=== PATIENT | female | born 1980 | race Caucasian/White ===

== ENCOUNTER 2020-02-10 05:07 | Emergency (ER) | payer BC, OTHER ==
[~2020-02-10] VITALS: Ht 165.1 cm; Wt 80.7 kg
[2020-02-10] MEDS ORDERED: ONDANSETRON HCL INJ 2MG/ML 2ML 2 MG/ML VIAL IV STA (05:15)
[2020-02-10] MEDS ORDERED: SODIUM CHLORIDE 0.9% 1000ML 1,000 ML IV STA (05:15)
[2020-02-10] MEDS ORDERED: ONDANSETRON HCL INJ 2MG/ML 2ML 2 MG/ML VIAL ONE (05:26)
[2020-02-10 05:37] LABS: BASOPHILS % 0.5 % (0.0-1.0); EOSINOPHILS # (AUTO) 0.2 (0.0-0.4); HEMATOCRIT 40.6 % (34.2-44.1); HEMOGLOBIN 13.6 g/dL (12.0-16.0); LYMPHOCYTES # (AUTO) 3.8 (1.0-3.2); MEAN CORPUSCULAR HEMOGLOBIN 33.2 pg (28-32); MEAN CORPUSCULAR HGB CONC 33.5 g/dL (31-35); MONOCYTES # (AUTO) 0.5 (0.2-0.8); MONOCYTES % 6.4 % (4.4-11.3); NEUTROPHILS # (AUTO) 3.8 (2.1-6.9); NEUTROPHILS % 45.7 % (38.7-80.0); PLATELET COUNT 224 x10e3/uL (140-360); RED CELL DISTRIBUTION WIDTH 12.9 % (11.7-14.4)
[2020-02-10 06:00] LABS: ALBUMIN 3.9 g/dL (3.5-5.0); ALBUMIN/GLOBULIN RATIO 1.1 (0.8-2.0); ANION GAP 8.4 mmol/L (8-16); CALCIUM 9.6 mg/dL (8.4-10.2); CREATININE, SERUM 1.07 mg/dL (0.57-1.11); POTASSIUM 3.4 mmol/L (3.5-5.1)
[2020-02-10 06:36] LABS: BILIRUBIN,URINE NEGATIVE (NEGATIVE); CLARITY,URINE SL CLOUDY (CLEAR); COLOR,URINE YELLOW (YELLOW); KETONES,URINE NEGATIVE (NEGATIVE); LEUKOCYTE ESTERASE ,URINE TRACE (NEGATIVE); NITRITE,URINE NEGATIVE (NEGATIVE); PROTEIN,URINE DIPSTICK NEGATIVE (NEGATIVE); URINE UROBILINOGEN 0.2 mg/dL (0.2 - 1)
[2020-02-10 06:45] LABS: PREGNANCY TEST, URINE NEGATIVE (NEGATIVE)
[2020-02-10 06:48] LABS: EPITHELIAL CELLS,URINE MANY /LPF; RBC,URINE 0-5 /HPF (0-5)
[2020-02-10 06:49] LABS: BACTERIA,URINE MANY /HPF
[2020-02-10] MEDS ORDERED: IOPAMIDOL 370 MG/ML 200 ML INFUS..BTL INJ ONE (06:55)
[2020-02-10] MEDS ORDERED: SODIUM CHLORIDE 0.9% 50ML 50 ML ONE (06:56)
--- NOTE | 2020-02-10 07:39 | Diagnostic Imaging Report ---
CT Abdomen And Pelvis with Intravenous Contrast INDICATION: Upper abdominal pain, radiating to back with nausea and vomiting ^abd pain ^[id number] ^0700 TECHNIQUE: Thin collimation axial images obtained from the diaphragm to the level of the pubic symphysis following the uneventful administration of 100 cc of low osmolar, nonionic intravenous contrast. Dose reduction techniques used: Automated exposure control, adjustment of the mAs and/or kVp according to patient size, standardized low-dose protocol, and/or iterative reconstruction technique. RADIATION DOSE: Total DLP: 485.6 mGy*cm Estimated effective dose: (DLP x 0.015 x size factor) mSv CTDIvol has been reviewed. It is below the limits set by the Radiation Protocol Committee (RPC). COMPARISON: None. ABDOMEN FINDINGS: Lung Bases: Clear. The visualized portions of the mediastinum are normal.. Liver: Normal attenuation. No evidence for mass. Gallbladder: Present and contains multiple gallstones. No gallbladder wall thickening. No biliary ductal dilatation. Pancreas: Normal attenuation without mass or ductal dilatation. Spleen: Normal in size. No evidence of mass. Adrenal Glands: No evidence for mass. Kidneys: Right: Normal enhancement. No soft tissue mass. No hydronephrosis. Left: Normal enhancement. No soft tissue mass. No hydronephrosis. Lymph Nodes: No lymphadenopathy. Aorta: Normal in diameter PELVIS FINDINGS: Bowel: Stomach: Normal. Small Bowel: Normal in caliber with normal wall thickness. Large Bowel: Normal in caliber with normal wall thickness. Appendix: Normal. Bladder: Normal. Uterus: Present and normal in morphology. There is a corpus luteum and a dominant follicle in the right ovary. A unilocular cystic structure superior to the uterus measures 7.4 x 6.7 x 5.6 cm. Peritoneum/retroperitoneum: Physiologic amount of free fluid in the pelvis. Bones: Unremarkable for age. IMPRESSION: 1. No evidence for bowel obstruction or inflammation. Normal appendix. 2. Corpus luteum in the right ovary with physiologic amount of free fluid in the pelvis suggestive of recent ovulation. 3. Unilocular cystic structure in the midline pelvis may arise from either ovary. Recommend further characterization with pelvic ultrasound. Signed by: Dr. Edward Bateman MD on 02/10/2020 7:36 AM
[2020-02-10] MEDS ORDERED: KETOROLAC TROMETHAMINE 30 MG/ML VIAL IV STA (09:31)
[2020-02-10] MEDS ORDERED: FAMOTIDINE 20 MG/2 ML VIAL IV STA (09:31)
--- NOTE | 2020-02-10 09:43 | Diagnostic Imaging Report ---
EXAM: Right upper quadrant abdominal ultrasound INDICATION: Right upper quadrant pain COMPARISON: CT abdomen and pelvis of the same day TECHNIQUE: Transverse and longitudinal images of the right upper quadrant abdomen were obtained FINDINGS: Liver: Size: 13.7 cm in the right midclavicular line, normal Appearance: Increased echogenicity, smooth contour Mass: No focal masses Gallbladder: Multiple echogenic calculi (up to 1.8cm) in the gallbladder fundus. Additional sludge within the gallbladder. The gallbladder is somewhat distended, measuring up to 3.9 x 11.2 cm. No pericholecystic fluid or gallbladder wall thickening. Negative sonographic Gomez's sign. Gallbladder wall measures 2 mm. Bile Ducts: Intrahepatic Ducts: No dilatation Extrahepatic Ducts: Common bile duct measures 3 mm Pancreas: Visualized portions of the pancreatic head, neck and proximal body are normal. Kidney: The right kidney measures 10.1 cm without evidence of hydronephrosis or stone. Vessels: Aorta: Visualized portions are normal Inferior Vena Cava: Visualized portions are normal Main Portal Vein: 0.7 cm, normal size with hepatopetal flow. Free Fluid: No ascites or pleural effusion IMPRESSION: Cholelithiasis and sludge in the gallbladder. Mild gallbladder distention. No specific sonographic evidence of cholecystitis. Signed by: Kash Hoffman MD on 02/10/2020 9:39 AM
[2020-02-10] MEDS ORDERED: DONNATAL/LIDOCAINE/MAALOX 30 ML SUSP PO ONE (09:45)
[2020-02-10] MEDS ORDERED: ZOFRAN4 MG PO (10:17)
[2020-02-10] MEDS ORDERED: DICYCLOMINE HCL20 MG PO (10:17)
== END 2020-02-10 10:35 | disposition home or self-care (01) ==
LOC: ER 05:07
DX: R10.11 Right upper quadrant pain (principal); R11.2 Nausea with vomiting, unspecified; K80.20 Calculus of gallbladder without cholecystitis without obstruction; F41.9 Anxiety disorder, unspecified; G98.8 Other disorders of nervous system
CPT/HCPCS: 36415; 74177; 76705; 80053; 81001; 81025; 83690; 85025; 93005; 99284; J1885; J2405; J7030; Q9967

== ENCOUNTER 2020-02-11 02:03 | Emergency (ER) | payer OTHER ==
[~2020-02-11] VITALS: Ht 165.1 cm; Wt 80.7 kg
[~2020-02-11 02:03] MED LIST: DICYCLOMINE HCL20 MG PO; ZOFRAN4 MG PO
--- OUTSIDE RECORDS SUMMARY | 2020-02-11 02:06 | XMS REPORT ---
Author [facility] Address Unknown Phone Unavailable Care Team Providers Care Timber Bucker Name Role Phone Avis PAGAN Unavailable Unavailable Problems This patient has no known problems. Allergies, Adverse Reactions, Alerts This patient has no known allergies or adverse reactions. Medications This patient has no known medications. Results Test Description Test Time Test Comments Text Results Atomic Results Result Comments GALLBLADDER 2020-02-10 09:36:00 [place] [address] Patient Name: AVERY MARY MR #: [id number] : 1980 Age/Sex: 39/F Req #: [id number] Adm Physician: Ordered by: CAROL LANGFORD DO Report #: [id number] Location: ER Room/Bed: Procedure: [id number] US/US GALLBLADDER Exam Date: 02/10/20 Exam Time: 0835 REPORT STATUS: Signed EXAM: Right upper quadrant abdominal ultrasound INDICATIO N: Right upper quadrant pain COMPARISON: CT abdomen and pelvis of the same day TECHNIQUE: Transverse and longitudinal images of the right upper quadrant abdomen were obtained FINDINGS: Liver: Size: 13.7 cm in the right midclavicular line, normal Appearance: Increased echogenicity, smooth contour Mass: No focal masses Gallbladder: Multiple echogenic calculi (up to 1.8cm) in the gallbladder fundus. Additional sludge within the gallbladder. The gallbladder is somewhat distended, measuring up to 3.9 x 11.2 cm. No pericholecystic fluid or gallbladder wall thickening. Negative sonographic Gomez's sign. Gallbladder wall measures 2 mm. Bile Ducts: Intrahepatic Ducts: No dilatation Extrahepatic Ducts: Common bile duct measures 3 mm Pancreas: Visualized portions of the pancreatic head, neck and proximal body are normal. Kidney: The right kidney measures 10.1 cm without evidence of hydronephrosis or stone. Vessels: Aorta: Visualized portions are normal Inferior Vena Cava: Visualized portions are normal Main Portal Vein: 0.7 cm, normal size with hepatopetal flow. Free Fluid: No ascites or pleural effusion IMPRESSION: Cholelithiasis and sludge in the gallbladder. Mild gallbladder distention. No specific sonographic evidence of cholecystitis. Signed by: Demarco Adkins MD on 02/10/2020 9:39 AM Dictated By: DEMARCO ADKINS MD 8 Transcribed By: JAGDEEP on 02/10/20938 COPY TO: CAROL LANGFORD DO CT ABDOMEN/PELVIS W 2020-02-10 07:31:00 [place] [address] Patient Name: AVERY MARY MR #: [id number] : 1980 Age/Sex: 39/F Req #: [id number] Adm Physician: Ordered by: GORGE PAGAN MD Report #: [id number] Location: ER Room/Bed: Procedure: [id number] CT/CT ABDOMEN/PELVIS W Exam Date: 02/10/20 Exam Time: 0700 REPORT STATUS: Signed CT Abdomen And Pelvis with Intravenous Contrast IN DICATION: Upper abdominal pain, radiating to back with nausea and vomiting abd pain [id number] TECHNIQUE: Thin collimation axial images obtained from the diaphragm to the level of the pubic symphysis following the uneventful administration of 100 cc of low osmolar, nonionic intravenous contrast. Dose reduction techniques used: Automated exposure control, adjustment of the mAs and/or kVp according to patient size, standardized low- dose protocol, and/or iterative reconstruction technique. RADIATION DOSE: Total DLP: 485.6 mGy*cm Estimated effective dose: (DLP x 0.015 x size factor) mSv CTDIvol has been reviewed. It is below the limits set by the Radiation Protocol Committee (RPC). COMPARISON: None. ABDOMEN FINDINGS: Lung Bases: Clear. The visualized portions of the mediastinum are normal.. Liver: Normal attenuation. No evidence for mass. Gallbladder: Present and contains multiple gallstones. No gallbladder wall thickening. No biliary ductal dilatation. Pancreas: Normal attenuation without mass or ductal dilatation. Spleen: Normal in size. No evidence of mass. Adrenal Glands: No evidence for mass. Kidneys: Right: Normal enhancement. No soft tissue mass. No hydronephrosis. Left: Normal enhancement. No soft tissue mass. No hydronephrosis. Lymph Nodes: No lym phadenopathy. Aorta: Normal in diameter PELVIS FINDINGS: Bowel: Stomach: Normal. Small Bowel: Normal in caliber with normal wall thickness. Large Bowel: Normal in caliber with normal wall thickness. Appendix: Normal. Bladder: Normal. Uterus: Present and normal in morphology. There is a corpus luteum and a dominant follicle in the right ovary. A unilocular cystic structure superior to the uterus measures 7.4 x 6.7 x 5.6 cm. Peritoneum/retroperitoneum: Physiologic amount of free fluid in the pelvis. Bones: Unremarkable for age. IMPRESSION: 1. No evidence for bowel obstruction or inflammation. Normal appendix. 2. Corpus luteum in the right ovary with physiologic amount of free fluid in the pelvis suggestive of recent ovulation. 3. Unilocular cystic structure in the midline pelvis may arise from either ovary. Recommend further characterization with pelvic ultrasound. Signed by: Dr. Mercedes Bateman MD on 02/10/2020 7:36 AM Dictated By: MERCEDES BATEMAN MD 5 Transcribed By: JAGDEEP on 02/10/20735 COPY TO: GORGE PAGAN MD
[2020-02-11] MEDS ORDERED: SODIUM CHLORIDE 0.9% 1000ML 1,000 ML IV STA (02:14)
[2020-02-11] MEDS ORDERED: ONDANSETRON HCL INJ 2MG/ML 2ML 2 MG/ML VIAL IV STA (02:16)
[2020-02-11] MEDS ORDERED: MORPHINE SULFATE INJ 4 MG/ML INJ 1ML IV PRN (02:30)
[2020-02-11 02:42] LABS: BASOPHILS # (AUTO) 0.1 (0.0-0.1); BASOPHILS % 0.5 % (0.0-1.0); EOSINOPHILS # (AUTO) 0.1 (0.0-0.4); EOSINOPHILS % 0.9 % (0.0-6.0); HEMATOCRIT 40.4 % (34.2-44.1); HEMOGLOBIN 13.6 g/dL (12.0-16.0); LYMPHOCYTES # (AUTO) 3.3 (1.0-3.2); MEAN CORPUSCULAR HEMOGLOBIN 33.4 pg (28-32); MEAN CORPUSCULAR HGB CONC 33.7 g/dL (31-35); MEAN CORPUSCULAR VOLUME 99.3 fL (81-99); MONOCYTES # (AUTO) 0.6 (0.2-0.8); MONOCYTES % 6.2 % (4.4-11.3); NEUTROPHILS # (AUTO) 5.9 (2.1-6.9); NEUTROPHILS % 59.1 % (38.7-80.0); PLATELET COUNT 231 x10e3/uL (140-360); RED BLOOD COUNT 4.07 x10e6/uL (3.6-5.1)
[2020-02-11 02:54] LABS: ALANINE AMINOTRANSFERASE 40 IU/L (0-55); ALBUMIN/GLOBULIN RATIO 1.2 (0.8-2.0); ALKALINE PHOSPHATASE 59 IU/L (40-150); BLOOD UREA NITROGEN 7 mg/dL (7-26); BUN/CREATININE RATIO 7 (6-25); CALCIUM 9.4 mg/dL (8.4-10.2); CHLORIDE 105 mmol/L (98-107); CREATININE, SERUM 0.97 mg/dL (0.57-1.11); EST GLOMERULAR FILTRATION RATE > 60 ML/MIN (60-); GLUCOSE 126 mg/dL (74-118); POTASSIUM 3.4 mmol/L (3.5-5.1); SODIUM 140 mmol/L (136-145)
[2020-02-11 03:28] LABS: ANION GAP 13.4 mmol/L (8-16); CARBON DIOXIDE 24 mmol/L (22-29)
[2020-02-11 03:36] LABS: BILIRUBIN,URINE NEGATIVE (NEGATIVE); CLARITY,URINE CLEAR (CLEAR); COLOR,URINE YELLOW (YELLOW); KETONES,URINE NEGATIVE (NEGATIVE); LEUKOCYTE ESTERASE ,URINE NEGATIVE (NEGATIVE); NITRITE,URINE NEGATIVE (NEGATIVE); PREGNANCY TEST, URINE NEGATIVE (NEGATIVE); PROTEIN,URINE DIPSTICK NEGATIVE (NEGATIVE); URINE UROBILINOGEN 0.2 mg/dL (0.2 - 1)
[2020-02-11 03:48] VITALS: BP 128/85
[2020-02-11 07:00] LABS: BACTERIA,URINE RARE /HPF
== END 2020-02-11 04:11 | disposition home or self-care (01) ==
LOC: ER 02:03
DX: R10.11 Right upper quadrant pain (principal); R11.0 Nausea
CPT/HCPCS: 36415; 80053; 81001; 81025; 85025; 99283; J2270; J2405; J7030